=== PATIENT | female | born 1950 | race Caucasian/White ===

== ENCOUNTER 2016-04-06 09:00 | Outpatient (RCR) | payer MEDICARE | END 2016-04-20 16:15 | disposition home or self-care (01) | LOC: PT 09:00 | PROVIDERS: ATTEND Orthopaedic Surgery Orthopaedic Surgery of the Spine | DX: Z96.642 Presence of left artificial hip joint (principal); M25.552 Pain in left hip | CPT/HCPCS: 97110; 97112; 97140; 97161; 97530; G8978; G8979 ==